=== PATIENT | female | born 1955 | race Caucasian/White ===

== ENCOUNTER 2017-07-21 23:21 | Emergency (ER) | payer BC ==
--- NOTE | 2017-07-21 23:45 | CPEKG ---
Heart Rate: 67 RR Interval: 896 P-R Interval: 144 QRSD Interval: 100 QT Interval: 400 QTC Interval: 423 P [place]: 41 QRS [place]: -30 T [place]: 33 EKG Severity - OTHERWISE NORMAL ECG - EKG Impression: SINUS RHYTHM EKG Impression: LEFT AXIS DEVIATION Electronically Signed By: Dayanara Washburn 22-Jul-2017 06:05:36
--- NOTE | 2017-07-22 00:47 | EDPHY ---
H & P Stated Complaint: IRREGULAT HEART RATE, Time Seen by Provider: 07/21/17 23:36 HPI/ROS: skipping beat when in bed HPI The patient presents with palpitations which she noticed tonight while lying in bed. They are intermittent, mild in severity and she has noticed them intermittently over the last 1 week. She does report increased stress as she is completing a moved from [facility] to [place]. She does have a remote history of palpitations in the setting of caffeine use and taking ephedrine as a diet pill. She does not have any chest pain, shortness of breath, leg swelling. REVIEW OF SYSTEMS Constitutional: No fever, no chills. Eyes: No discharge. ENT: No sore throat. Cardiovascular: No chest pain, no palpitations. Respiratory: No cough, no shortness of breath. Gastrointestinal: No abdominal pain, no vomiting. Genitourinary: No hematuria. Musculoskeletal: No back pain. Skin: No rashes. Neurological: No headache. PMHx: hx of pancreatic cancer s/p resection Soc Hx: recently relocated from [place], retired PHYSICAL General Appearance: Alert, no distress Eyes: Pupils equal and round no pallor or injection ENT, Mouth: Mucous membranes moist Respiratory: There are no retractions, lungs are clear to auscultation Cardiovascular: Regular rate and rhythm Gastrointestinal: Abdomen is soft and non-tender, no masses, bowel sounds normal Neurological: A&O, moves all extremities Skin: Warm and dry, no rashes Musculoskeletal: Neck is supple non tender Extremities: symmetrical, full range of motion Psychiatric: Patient is oriented X 3, there is no agitation Source: Patient Exam Limitations: No limitations - Personal History Current Tetanus/Diphtheria Vaccine: Yes Current Tetanus Diphtheria and Acellular Pertussis (TDAP): Yes - Medical/Surgical History Hx Asthma: No Hx Chronic Respiratory Disease: No Hx Diabetes: No Hx Cardiac Disease: No Hx Renal Disease: No Hx Cirrhosis: No Hx Alcoholism: No Hx HIV/AIDS: No Hx Splenectomy or Spleen Trauma: No Other PMH: PANCREATIC CA 2007, HYPOTHYROID, HIGH CHOLESTEROL - Social History Smoking Status: Never smoked Constitutional: Initial Vital Signs Temperature (C) 36.5 C 07/21/17 23:30 Heart Rate 74 07/21/17 23:30 Respiratory Rate 18 07/21/17 23:30 Blood Pressure 129/87 H 07/21/17 23:30 O2 Sat (%) 93 07/21/17 23:30 O2 Delivery Mode Room Air Allergies/Adverse Reactions: No Known Allergies Allergy (Unverified 02/20/10 15:39) Home Medications: Medication Instructions Recorded Atorvastatin Calcium [Lipitor] 40 mg PO 06/13/12 Fluticasone Nasal [Flonase Nasal 2 sprays NASAL DAILY #1 mdi 06/13/12 [place] (RX)] Levothyroxine [Synthroid 50 mcg 50 mcg PO DAILY06 06/13/12 (RX)] Medical Decision Making - Diagnostics EKG Interpretation: EKG: Complete interpretation has been separately recorded in the [employer] archive. Summary impression: Normal sinus rhythm Differential Diagnosis: This is a 62-year-old female who presents with palpitations for the last 1 week , worse tonight while lying in bed. On review of her telemetry, she is having frequent PACs without any signs of arrhythmia otherwise. Differential diagnosis also includes dehydration, anemia, hyperthyroidism. Patient was given IV fluids in the emergency department for presumed volume depletion. Labs were checked and were unremarkable. I have given her referral to Cardiology for possible Holter monitor. If her symptoms continue she would benefit from follow-up. - Data Points Laboratory Results: Laboratory Results 07/22/17 00:47 07/22/17 00:47 07/22/17 07/22/17 00:47 00:47 WBC 13.09 10^3/uL H 10^3/uL (3.80-9.50) RBC 4.63 10^6/uL 10^6/uL (4.18-5.33) Hgb 13.5 g/dL g/dL (12.6-16.3) Hct 40.0 % % (38.0-47.0) MCV 86.4 fL fL (81.5-99.8) MCH 29.2 pg pg (27.9-34.1) MCHC 33.8 g/dL g/dL (32.4-36.7) RDW 15.3 % H % (11.5-15.2) Plt Count 414 10^3/uL H 10^3/uL (150-400) MPV 10.7 fL fL (8.7-11.7) Neut % (Auto) 41.0 % % (39.3-74.2) Lymph % (Auto) 48.8 % H % (15.0-45.0) [place] % (Auto) 7.3 % % (4.5-13.0) Eos % (Auto) 1.5 % % (0.6-7.6) Baso % (Auto) 0.7 % % (0.3-1.7) Nucleat RBC Rel Count 0.0 % % (0.0-0.2) Absolute Neuts (auto) 5.37 10^3/uL 10^3/uL (1.70-6.50) Absolute Lymphs (auto) 6.39 10^3/uL H 10^3/uL (1.00-3.00) Absolute Monos (auto) 0.96 10^3/uL H 10^3/uL (0.30-0.80) Absolute Eos (auto) 0.19 10^3/uL 10^3/uL (0.03-0.40) Absolute Basos (auto) 0.09 10^3/uL 10^3/uL (0.02-0.10) Absolute Nucleated RBC 0.00 10^3/uL 10^3/uL (0-0.01) Immature Gran % 0.7 % % (0.0-1.1) Immature Gran # 0.09 10^3/uL 10^3/uL (0.00-0.10) Sodium 144 mEq/L mEq/L (135-145) Potassium 4.3 mEq/L mEq/L (3.5-5.2) Chloride 105 mEq/L mEq/L (97-110) Carbon Dioxide 28 mEq/l mEq/l (22-31) Anion Gap 11 mEq/L mEq/L (8-16) BUN 12 mg/dL mg/dL (7-23) Creatinine 0.6 mg/dL mg/dL (0.6-1.0) Estimated GFR > 60 Glucose 101 mg/dL H mg/dL (70-100) Calcium 9.6 mg/dL mg/dL (8.5-10.4) TSH 4.110 uIU/mL uIU/mL (0.465-4.680) Departure - Departure Disposition: Home, Routine, Self-Care Clinical Impression: Premature atrial complex Condition: Good Instructions: Premature Atrial Contractions (ED) Referrals: Humphrey Rosario MD [Medical Doctor] - As per Instructions
[2017-07-22 00:58] LABS: PLATELET COUNT 414 10^3/uL (150-400)
[2017-07-22 01:39] VITALS: BP 121/76
== END 2017-07-22 01:38 | disposition home or self-care (01) ==
DX: I49.1 Atrial premature depolarization (principal); Z85.07 Personal history of malignant neoplasm of pancreas

== ENCOUNTER → 2018-02-20 | Outpatient (CLI) | payer BC ==
[~2018-02-20] MED LIST: GADOBUTROL 10 ML VIAL IVP ONE
== END ==
LOC: FIMAGING 10:18
PROVIDERS: ATTEND Internal Medicine Hematology & Oncology
DX: K76.9 Liver disease, unspecified (principal); E78.5 Hyperlipidemia, unspecified; C25.2 Malignant neoplasm of tail of pancreas
CPT/HCPCS: A9585